=== PATIENT | female | born 1935 | race Caucasian/White ===

== ENCOUNTER → 2017-02-18 | Outpatient (CLI) | payer MEDICARE, BC ==
[~2017-02-18] MED LIST: GOOD SENSE ASP325 M1; PRILOSEC 20MG20 MG PO; QUALITY CHOICE600 M1 PO; XANAX0.25 MG PO
== END ==
LOC: LAB 09:07
DX: N30.01 Acute cystitis with hematuria (principal); R31.9 Hematuria, unspecified

== ENCOUNTER → 2017-03-01 | Outpatient (CLI) | payer MEDICARE, BC | LOC: LAB 16:22 | DX: N30.01 Acute cystitis with hematuria (principal) ==

== ENCOUNTER → 2017-11-20 | Outpatient (CLI) | payer MEDICARE, BC ==
[2014-12-30 11:00] VITALS: BP 122/69
[2017-11-20 14:15] LABS: ALBUMIN 4.2 g/dL (3.5-5.0); BUN/CREATININE RATIO 20.5 (6.0-26.0); CALCIUM 9.6 mg/dL (8.4-10.2); POTASSIUM 4.2 mmol/L (3.6-5.0); TOTAL BILIRUBIN 1.2 mg/dL (0.2-1.3); TOTAL PROTEIN 7.6 g/dL (6.3-8.2)
[2017-11-20 14:24] LABS: EOS # 0.2 (0.04-0.40); EOS % 2.9 % (1.0-5.0); HEMATOCRIT 46.5 % (37.0-47.0); HEMOGLOBIN 15.3 g/dL (12.5-16.0); LYMPH# 3.7 (1.50-4.00); MEAN CELL VOLUME 90 fl (78-100); MEAN CORPUSCULAR HEMOGLOBIN 30 pg (27-31); MEAN CORPUSCULAR HGB CONC 33 g/dL (33-37); MEAN PLATELET VOLUME 8.8 fl (7.4-10.4); MONO # 0.7 (0.20-0.80); PLATELET COUNT 257 K/mm3 (130-400); RED BLOOD COUNT 5.17 M/mm3 (4.10-5.30); RED CELL DISTRIBUTION WIDTH 13.2 % (11.5-14.5); WHITE BLOOD COUNT 7.7 K/mm3 (4.8-10.8)
== END ==
LOC: LAB 13:42
PROVIDERS: Nurse Practitioner Family
DX: R74.8 Abnormal levels of other serum enzymes (principal); D05.10 Intraductal carcinoma in situ of unspecified breast; M80.00XD Age-related osteoporosis with current pathological fracture, unspecified site, subsequent encounter for fracture with routine healing; Z88.5 Allergy status to narcotic agent; Z88.6 Allergy status to analgesic agent; Z88.4 Allergy status to anesthetic agent; Z88.1 Allergy status to other antibiotic agents; Z91.012 Allergy to eggs; Z91.040 Latex allergy status

== ENCOUNTER → 2017-12-17 | Outpatient (CLI) | payer MEDICARE, BC ==
[2014-12-30 11:00] VITALS: BP 122/69
== END ==
LOC: MAMMO 12:58 → RAD 13:00 → MAMMO 13:00
DX: Z12.31 Encounter for screening mammogram for malignant neoplasm of breast (principal); Z85.3 Personal history of malignant neoplasm of breast

== ENCOUNTER 2017-12-27 14:12 | Emergency (ER) | payer MEDICARE, BC ==
[~2017-12-27] VITALS: Ht 160 cm; Wt 72.7 kg
[2017-12-27] MEDS ORDERED: CHILDREN'S ASPI81 M1 PO (14:22)
[2017-12-27 15:41] LABS: EOS # 0.2 (0.04-0.40); EOS % 1.7 % (1.0-5.0); HEMATOCRIT 48.3 % (37.0-47.0); LYMPH# 3.6 (1.50-4.00); MEAN CELL VOLUME 89 fl (78-100); MEAN CORPUSCULAR HEMOGLOBIN 30 pg (27-31); MEAN CORPUSCULAR HGB CONC 33 g/dL (33-37); NEU # 4.7 (1.40-6.50); PLATELET COUNT 231 K/mm3 (130-400); RED BLOOD COUNT 5.42 M/mm3 (4.10-5.30); RED CELL DISTRIBUTION WIDTH 13.2 % (11.5-14.5); WHITE BLOOD COUNT 9.5 K/mm3 (4.8-10.8)
[2017-12-27 15:54] LABS: ALBUMIN 4.4 g/dL (3.5-5.0); BUN/CREATININE RATIO 17.6 (6.0-26.0); CALCIUM 9.9 mg/dL (8.4-10.2); POTASSIUM 4.5 mmol/L (3.6-5.0); TOTAL BILIRUBIN 1.2 mg/dL (0.2-1.3); TOTAL PROTEIN 7.8 g/dL (6.3-8.2)
[2017-12-27 16:00] LABS: CKMB ISOENZYME 1.4 ng/mL (0.6-3.5)
[2017-12-27 16:13] LABS: D-DIMER 0.6 mg/L FEU (0.15-0.50)
[2017-12-27 16:20] LABS: URINE APPEARANCE HAZY; URINE BILIRUBIN NEGATIVE (NEGATIVE); URINE BLOOD TRACE (NEGATIVE); URINE COLOR YELLOW; URINE GLUCOSE NEGATIVE (NEGATIVE); URINE KETONE NEGATIVE (NEGATIVE); URINE LEUKOCYTE ESTERASE 2+ (NEGATIVE); URINE NITRATE NEGATIVE (NEGATIVE); URINE PROTEIN(semi-quant) TRACE mg/dL (NEGATIVE); URINE UROBILINOGEN NORMAL (NORMAL); URINE WBC >50 /hpf (0-3)
[2017-12-27 16:33] LABS: TROPONIN-I < 0.03 ng/mL (0.00-0.06)
[2017-12-27 16:52] VITALS: BP 152/80
== END 2017-12-27 16:49 | disposition home or self-care (01) ==
LOC: ED 14:12
PROVIDERS: Physician Assistant
DX: M94.0 Chondrocostal junction syndrome [Tietze] (principal); Z85.3 Personal history of malignant neoplasm of breast; R82.90 Unspecified abnormal findings in urine; K21.9 Gastro-esophageal reflux disease without esophagitis; Z79.82 Long term (current) use of aspirin; Z88.5 Allergy status to narcotic agent; Z88.8 Allergy status to other drugs, medicaments and biological substances; Z91.012 Allergy to eggs; Z91.040 Latex allergy status

== ENCOUNTER → 2018-04-03 | Outpatient (CLI) | payer MEDICARE, BC ==
[~2018-04-03] MED LIST changes: +CHILDREN'S ASPI81 M1 PO
== END ==
LOC: RAD 08:30
DX: K76.89 Other specified diseases of liver (principal)

== ENCOUNTER → 2019-02-18 | Outpatient (CLI) | payer MEDICARE, BC | LOC: MAMMO 12:27 | DX: Z12.31 Encounter for screening mammogram for malignant neoplasm of breast (principal) ==

== ENCOUNTER → 2019-05-27 | Outpatient (CLI) | payer MEDICARE, BC | LOC: RAD 13:14 | DX: M19.031 Primary osteoarthritis, right wrist (principal) ==

== ENCOUNTER → 2019-10-08 | Outpatient (CLI) | payer MEDICARE, BC ==
[2019-10-08 16:19] LABS: URINE APPEARANCE CLOUDY; URINE BILIRUBIN NEGATIVE (NEGATIVE); URINE BLOOD 250 ery/uL (NEGATIVE); URINE COLOR YELLOW; URINE GLUCOSE NEGATIVE (NEGATIVE); URINE KETONE NEGATIVE (NEGATIVE); URINE LEUKOCYTE ESTERASE 2+ (NEGATIVE); URINE NITRATE POSITIVE (NEGATIVE); URINE PROTEIN(semi-quant) 1+ mg/dL (NEGATIVE); URINE UROBILINOGEN NORMAL (NORMAL); URINE WBC >50 /hpf (0-3)
== END ==
LOC: LAB 15:20
PROVIDERS: Physician Assistant
DX: N39.0 Urinary tract infection, site not specified (principal); R82.71 Bacteriuria

== ENCOUNTER → 2019-12-15 | Outpatient (CLI) | payer MEDICARE, BC ==
[2019-12-15 15:00] LABS: EOS # 0.2 (0.04-0.40); EOS % 1.7 % (1.0-5.0); HEMATOCRIT 47.5 % (37.0-47.0); HEMOGLOBIN 15.2 g/dL (12.5-16.0); LYMPH# 3.5 (1.50-4.00); MEAN CELL VOLUME 91 fl (78-100); MEAN CORPUSCULAR HEMOGLOBIN 29 pg (27-31); MEAN CORPUSCULAR HGB CONC 32 g/dL (33-37); MONO # 0.7 (0.20-0.80); NEU # 4.8 (1.40-6.50); PLATELET COUNT 255 K/mm3 (130-400); RED CELL DISTRIBUTION WIDTH 13.6 % (11.5-14.5); WHITE BLOOD COUNT 9.3 K/mm3 (4.8-10.8)
[2019-12-15 15:08] LABS: ALBUMIN 4.2 g/dL (3.4-4.8)
[2019-12-15 15:09] LABS: POTASSIUM 4.6 mmol/L (3.5-5.1)
[2019-12-15 15:10] LABS: CALCIUM 8.3 mg/dL (8.3-10.5)
[2019-12-15 15:11] LABS: TOTAL PROTEIN 7.1 g/dL (6.2-8.1)
[2019-12-15 15:13] LABS: TOTAL BILIRUBIN 1.2 mg/dL (0.2-1.2)
[2019-12-15 15:19] LABS: PH-URINE 7.5 (5.0 - 8.0); URINE APPEARANCE CLEAR; URINE BILIRUBIN NEGATIVE (NEGATIVE); URINE BLOOD TRACE (NEGATIVE); URINE COLOR YELLOW; URINE GLUCOSE NEGATIVE (NEGATIVE); URINE KETONE NEGATIVE (NEGATIVE); URINE LEUKOCYTE ESTERASE 1+ (NEGATIVE); URINE NITRATE NEGATIVE (NEGATIVE); URINE PROTEIN(semi-quant) NEGATIVE (NEGATIVE); URINE UROBILINOGEN NORMAL (NORMAL)
== END ==
LOC: RAD 14:26
PROVIDERS: Physician Assistant
DX: K76.89 Other specified diseases of liver (principal); Z87.440 Personal history of urinary (tract) infections

== ENCOUNTER → 2019-12-22 | Outpatient (CLI) | payer MEDICARE, BC | LOC: RAD 14:20 | DX: K57.30 Diverticulosis of large intestine without perforation or abscess without bleeding (principal); K76.89 Other specified diseases of liver ==

== ENCOUNTER 2020-03-18 20:31 | Emergency (ER) | payer MEDICARE, BC ==
[2020-03-18] MEDS ORDERED: NATURAL VITAM1000 MG PO (20:45)
[2020-03-18 22:05] VITALS: BP 159/93
== END 2020-03-18 22:05 | disposition home or self-care (01) ==
LOC: ED 20:31
DX: R04.0 Epistaxis (principal)

== ENCOUNTER → 2020-10-04 | Outpatient (CLI) | payer MEDICARE, BC ==
[~2020-10-04] MED LIST changes: +NATURAL VITAM1000 MG PO
== END ==
LOC: MAMMO 13:00
DX: Z00.00 Encounter for general adult medical examination without abnormal findings (principal); Z12.31 Encounter for screening mammogram for malignant neoplasm of breast; Z90.11 Acquired absence of right breast and nipple

== ENCOUNTER → 2021-04-19 | Outpatient (CLI) | payer MEDICARE, BC ==
[~2021-04-19] MED LIST changes: +ACID-PEP20 MG PO; +DEXAMETHASONE OP; +LORAZEPAM0.5 M1 PO; +SERTRALINE50 MG PO; +[UNRECOGNIZED DRUG - OTHER] OP
== END ==
LOC: RAD 09:25
DX: M48.02 Spinal stenosis, cervical region (principal); M46.92 Unspecified inflammatory spondylopathy, cervical region; M43.22 Fusion of spine, cervical region

== ENCOUNTER 2021-07-14 17:10 | Emergency (ER) | payer MEDICARE, BC ==
[~2021-07-14] VITALS: Ht 160 cm; Wt 76.0 kg
[~2021-07-14 17:10] MED LIST changes: -ACID-PEP20 MG PO; -DEXAMETHASONE OP; -LORAZEPAM0.5 M1 PO; -SERTRALINE50 MG PO; -[UNRECOGNIZED DRUG - OTHER] OP
[2021-07-14] MEDS ORDERED: SERTRALINE50 MG PO (17:31)
[2021-07-14] MEDS ORDERED: [UNRECOGNIZED DRUG - OTHER] OP (17:33)
[2021-07-14] MEDS ORDERED: DEXAMETHASONE OP (17:33)
[2021-07-14] MEDS ORDERED: ACID-PEP20 MG PO (17:34)
[2021-07-14 18:06] LABS: BASO # 0.03 (0.02-0.10); EOS # 0.21 (0.04-0.40); EOS % 2.7 % (1.0-5.0); HEMATOCRIT 42.9 % (37.0-47.0); HEMOGLOBIN 14.1 g/dL (12.5-16.0); LYMPH# 2.78 (1.50-4.00); MEAN CELL VOLUME 92 fl (78-100); MEAN CORPUSCULAR HEMOGLOBIN 30 pg (27-31); MEAN CORPUSCULAR HGB CONC 33 g/dL (33-37); MEAN PLATELET VOLUME 8.7 fl (7.4-10.4); MONO # 0.72 (0.20-0.80); NEU # 3.93 (1.40-6.50); PLATELET COUNT 203 K/mm3 (130-400); RED BLOOD COUNT 4.68 M/mm3 (4.10-5.30); RED CELL DISTRIBUTION WIDTH 12.7 % (11.5-14.5); WHITE BLOOD COUNT 7.7 K/mm3 (4.8-10.8)
[2021-07-14 18:31] LABS: ALBUMIN 3.7 g/dL (3.4-4.8)
[2021-07-14 18:32] LABS: CALCIUM 9.6 mg/dL (8.3-10.5); TROPONIN-I < 0.03 ng/mL (<0.030)
[2021-07-14 18:33] LABS: GLUCOSE 107 mg/dL (65-105); TOTAL PROTEIN 6.7 g/dL (6.2-8.1)
[2021-07-14 18:34] LABS: CARBON DIOXIDE 25 mmol/L (23-31)
[2021-07-14 18:35] LABS: TOTAL BILIRUBIN 1.2 mg/dL (0.2-1.2)
[2021-07-14 18:39] LABS: AST-SGOT 29 U/L (5-34)
[2021-07-14 18:40] LABS: ALT/SGPT 27 U/L (0-55)
[2021-07-14] MEDS ORDERED: LORAZEPAM0.5 M1 PO (19:20)
[2021-07-14 19:40] VITALS: BP 140/71
[2021-07-14 20:27] LABS: POTASSIUM 4.5 mmol/L (3.5-5.1); SODIUM 136 mmol/L (136-145)
== END 2021-07-14 19:40 | disposition home or self-care (01) ==
LOC: ED 17:10
PROVIDERS: Family Medicine
DX: F41.9 Anxiety disorder, unspecified (principal); M94.0 Chondrocostal junction syndrome [Tietze]; K21.9 Gastro-esophageal reflux disease without esophagitis; Z79.899 Other long term (current) drug therapy

== ENCOUNTER → 2021-10-20 | Outpatient (CLI) | payer MEDICARE, BC ==
[~2021-10-20] MED LIST changes: +ACID-PEP20 MG PO; +DEXAMETHASONE OP; +LORAZEPAM0.5 M1 PO; +SERTRALINE50 MG PO; +[UNRECOGNIZED DRUG - OTHER] OP
[2021-10-20 15:27] LABS: BASO # 0.03 K/mm3 (0.02-0.10); EOS # 0.29 K/mm3 (0.04-0.40); EOS % 4.1 % (1.0-5.0); HEMATOCRIT 45.3 % (37.0-47.0); HEMOGLOBIN 14.5 g/dL (12.5-16.0); LYMPH# 3.18 K/mm3 (1.50-4.00); MEAN CELL VOLUME 94 fl (78-100); MEAN CORPUSCULAR HEMOGLOBIN 30 pg (27-31); MEAN CORPUSCULAR HGB CONC 32 g/dL (33-37); MEAN PLATELET VOLUME 9.2 fl (7.4-10.4); MONO # 0.68 K/mm3 (0.20-0.80); PLATELET COUNT 184 K/mm3 (130-400); RED BLOOD COUNT 4.82 M/mm3 (4.10-5.30); RED CELL DISTRIBUTION WIDTH 12.8 % (11.5-14.5); WHITE BLOOD COUNT 7.1 K/mm3 (4.8-10.8)
[2021-10-20 16:09] LABS: POTASSIUM 4.3 mmol/L (3.5-5.1)
[2021-10-20 16:10] LABS: CALCIUM 9.3 mg/dL (8.3-10.5)
[2021-10-20 16:11] LABS: TOTAL PROTEIN 6.6 g/dL (6.2-8.1)
[2021-10-20 16:13] LABS: TOTAL BILIRUBIN 0.9 mg/dL (0.2-1.2)
== END ==
LOC: LAB 14:58
PROVIDERS: Physician Assistant
DX: M81.0 Age-related osteoporosis without current pathological fracture (principal); R53.83 Other fatigue; E78.5 Hyperlipidemia, unspecified; R94.5 Abnormal results of liver function studies

== ENCOUNTER → 2022-03-12 | Outpatient (CLI) | payer MEDICARE, BC | LOC: MAMMO 14:07 | DX: Z12.31 Encounter for screening mammogram for malignant neoplasm of breast (principal) ==

== ENCOUNTER 2022-12-15 11:39 | Emergency (ER) | payer MEDICARE, BC ==
[~2022-12-15] VITALS: Ht 157.5 cm; Wt 73.4 kg
[~2022-12-15 11:39] MED LIST changes: -CLOPIDOGREL PO
[2022-12-15 13:10] LABS: BASO # 0.02 K/mm3 (0.02-0.10); EOS # 0.21 K/mm3 (0.04-0.40); EOS % 2.2 % (1.0-5.0); HEMATOCRIT 40.4 % (37.0-47.0); HEMOGLOBIN 12.5 g/dL (12.5-16.0); LYMPH# 3.25 K/mm3 (1.50-4.00); MEAN CELL VOLUME 83 fl (78-100); MEAN CORPUSCULAR HEMOGLOBIN 26 pg (27-31); MEAN CORPUSCULAR HGB CONC 31 g/dL (33-37); MEAN PLATELET VOLUME 9.6 fl (7.4-10.4); MONO # 0.78 K/mm3 (0.20-0.80); NEU # 5.45 K/mm3 (1.40-6.50); RED BLOOD COUNT 4.89 M/mm3 (4.10-5.30); RED CELL DISTRIBUTION WIDTH 13.7 % (11.5-14.5); WHITE BLOOD COUNT 9.8 K/mm3 (4.8-10.8)
[2022-12-15 13:11] LABS: PLATELET COUNT 150 K/mm3 (130-400)
[2022-12-15 13:14] LABS: POTASSIUM 4.5 mmol/L (3.5-5.1)
[2022-12-15 13:15] LABS: ALBUMIN 4.2 g/dL (3.4-4.8); SODIUM 136 mmol/L (136-145)
[2022-12-15 13:18] LABS: GLUCOSE 94 mg/dL (65-105); TOTAL PROTEIN 7.4 g/dL (6.2-8.1)
[2022-12-15 13:19] LABS: CARBON DIOXIDE 23 mmol/L (23-31); TOTAL BILIRUBIN 1.2 mg/dL (0.2-1.2)
[2022-12-15 13:23] LABS: AST-SGOT 29 U/L (5-34)
[2022-12-15 13:25] LABS: ALT/SGPT 23 U/L (0-55)
[2022-12-15 13:34] LABS: TROPONIN-I < 0.030 ng/mL (<0.030)
[2022-12-15 14:32] LABS: PH-URINE 5.5 (5.0 - 8.0); URINE APPEARANCE CLEAR; URINE BILIRUBIN NEGATIVE (NEGATIVE); URINE BLOOD NEGATIVE (NEGATIVE); URINE COLOR YELLOW; URINE GLUCOSE NEGATIVE (NEGATIVE); URINE KETONE NEGATIVE (NEGATIVE); URINE LEUKOCYTE ESTERASE 1+ (NEGATIVE); URINE NITRATE NEGATIVE (NEGATIVE); URINE PROTEIN(semi-quant) NEGATIVE (NEGATIVE); URINE UROBILINOGEN NORMAL (NORMAL)
[2022-12-15] MEDS ORDERED: CLOPIDOGREL PO (15:05)
[2022-12-15 15:42] VITALS: BP 126/94
== END 2022-12-15 15:56 | disposition home or self-care (01) ==
LOC: ED 11:39
PROVIDERS: Family Medicine
DX: I69.354 Hemiplegia and hemiparesis following cerebral infarction affecting left non-dominant side (principal); Z79.02 Long term (current) use of antithrombotics/antiplatelets; Z79.82 Long term (current) use of aspirin

== ENCOUNTER → 2022-12-15 | Outpatient (CLI) | payer MEDICARE, BC ==
[~2022-12-15] MED LIST changes: +CLOPIDOGREL PO
== END ==
LOC: AMSURD 15:59
DX: I63.9 Cerebral infarction, unspecified (principal); G81.94 Hemiplegia, unspecified affecting left nondominant side

== ENCOUNTER → 2022-12-17 | Outpatient (CLI) | payer MEDICARE, BC ==
[~2022-12-17] MED LIST changes: +CLOPIDOGREL PO
== END ==
LOC: VAS 13:09
DX: I63.9 Cerebral infarction, unspecified (principal); G81.94 Hemiplegia, unspecified affecting left nondominant side

== ENCOUNTER → 2022-12-18 | Outpatient (CLI) | payer MEDICARE, BC ==
[2022-12-18 15:29] LABS: BASO # 0.03 K/mm3 (0.02-0.10); EOS # 0.18 K/mm3 (0.04-0.40); EOS % 2.2 % (1.0-5.0); HEMATOCRIT 39.8 % (37.0-47.0); HEMOGLOBIN 12.3 g/dL (12.5-16.0); LYMPH# 3.04 K/mm3 (1.50-4.00); MEAN CELL VOLUME 83 fl (78-100); MEAN CORPUSCULAR HEMOGLOBIN 26 pg (27-31); MEAN CORPUSCULAR HGB CONC 31 g/dL (33-37); MEAN PLATELET VOLUME 8.7 fl (7.4-10.4); MONO # 0.78 K/mm3 (0.20-0.80); NEU # 4.18 K/mm3 (1.40-6.50); PLATELET COUNT 276 K/mm3 (130-400); RED BLOOD COUNT 4.77 M/mm3 (4.10-5.30); RED CELL DISTRIBUTION WIDTH 13.8 % (11.5-14.5); WHITE BLOOD COUNT 8.2 K/mm3 (4.8-10.8)
[2022-12-18 15:43] LABS: ALBUMIN 4.1 g/dL (3.4-4.8); POTASSIUM 4.1 mmol/L (3.5-5.1)
[2022-12-18 15:44] LABS: CALCIUM 10.1 mg/dL (8.3-10.5)
[2022-12-18 15:45] LABS: TOTAL PROTEIN 7.4 g/dL (6.2-8.1)
[2022-12-18 15:47] LABS: TOTAL BILIRUBIN 0.8 mg/dL (0.2-1.2)
== END ==
LOC: LAB 14:53
PROVIDERS: Physician Assistant
DX: Z00.00 Encounter for general adult medical examination without abnormal findings (principal); I63.9 Cerebral infarction, unspecified; E78.5 Hyperlipidemia, unspecified; K90.9 Intestinal malabsorption, unspecified; G81.90 Hemiplegia, unspecified affecting unspecified side; Z13.29 Encounter for screening for other suspected endocrine disorder; Z13.1 Encounter for screening for diabetes mellitus

== ENCOUNTER → 2023-03-14 | Outpatient (CLI) | payer MEDICARE, BC ==
[2023-03-14 11:27] LABS: BASO # 0.03 K/mm3 (0.02-0.10); EOS # 0.06 K/mm3 (0.04-0.40); EOS % 0.6 % (1.0-5.0); HEMATOCRIT 29.7 % (37.0-47.0); HEMOGLOBIN 8.5 g/dL (12.5-16.0); LYMPH# 3.02 K/mm3 (1.50-4.00); MEAN CELL VOLUME 74 fl (78-100); MEAN CORPUSCULAR HEMOGLOBIN 21 pg (27-31); MEAN CORPUSCULAR HGB CONC 29 g/dL (33-37); MEAN PLATELET VOLUME 8.4 fl (7.4-10.4); MONO # 0.79 K/mm3 (0.20-0.80); NEU # 5.96 K/mm3 (1.40-6.50); PLATELET COUNT 256 K/mm3 (130-400); RED BLOOD COUNT 3.99 M/mm3 (4.10-5.30); RED CELL DISTRIBUTION WIDTH 14.8 % (11.5-14.5); WHITE BLOOD COUNT 9.9 K/mm3 (4.8-10.8)
[2023-03-14 11:33] LABS: ALBUMIN 4.2 g/dL (3.4-4.8); POTASSIUM 4.4 mmol/L (3.5-5.1)
[2023-03-14 11:34] LABS: CALCIUM 9.8 mg/dL (8.3-10.5)
[2023-03-14 11:35] LABS: TOTAL PROTEIN 7.3 g/dL (6.2-8.1)
[2023-03-14 11:48] LABS: PROTHROMBIN TIME 9.5 SECONDS (9.0-12.0); TROPONIN-I 0.38 ng/mL (<0.030)
== END ==
LOC: LAB 11:05
PROVIDERS: Physician Assistant
DX: Z01.20 Encounter for dental examination and cleaning without abnormal findings (principal); I63.9 Cerebral infarction, unspecified; R07.9 Chest pain, unspecified; R06.09 Other forms of dyspnea

== ENCOUNTER → 2023-12-12 | Outpatient (CLI) | payer MEDICARE, BC | LOC: RAD 14:48 | DX: R10.84 Generalized abdominal pain (principal); R06.09 Other forms of dyspnea ==

== ENCOUNTER → 2023-12-13 | Outpatient (CLI) | payer MEDICARE, BC ==
[2023-12-13 11:50] LABS: BASO # 0.05 K/mm3 (0.02-0.10); EOS # 0.21 K/mm3 (0.04-0.40); EOS % 2.8 % (1.0-5.0); HEMATOCRIT 32.5 % (37.0-47.0); HEMOGLOBIN 9.4 g/dL (12.5-16.0); MEAN CELL VOLUME 78 fl (78-100); MEAN CORPUSCULAR HEMOGLOBIN 23 pg (27-31); MEAN CORPUSCULAR HGB CONC 29 g/dL (33-37); MEAN PLATELET VOLUME 8.9 fl (7.4-10.4); MONO # 0.77 K/mm3 (0.20-0.80); NEU # 3.36 K/mm3 (1.40-6.50); PLATELET COUNT 253 K/mm3 (130-400); RED BLOOD COUNT 4.18 M/mm3 (4.10-5.30); RED CELL DISTRIBUTION WIDTH 15.9 % (11.5-14.5); WHITE BLOOD COUNT 7.5 K/mm3 (4.8-10.8)
[2023-12-13 11:55] LABS: ALBUMIN 4.1 g/dL (3.4-4.8); SODIUM 138 mmol/L (136-145)
[2023-12-13 11:57] LABS: CALCIUM 9.6 mg/dL (8.3-10.5)
[2023-12-13 11:58] LABS: GLUCOSE 98 mg/dL (65-105); TOTAL PROTEIN 6.8 g/dL (6.2-8.1)
[2023-12-13 11:59] LABS: CARBON DIOXIDE 27 mmol/L (23-31)
[2023-12-13 12:00] LABS: TOTAL BILIRUBIN 1.1 mg/dL (0.2-1.2)
[2023-12-13 12:03] LABS: AST-SGOT 28 U/L (5-34)
[2023-12-13 12:04] LABS: ALT/SGPT 23 U/L (0-55)
[2023-12-13 12:05] LABS: LIPASE 26 U/L (8-78)
[2023-12-13 12:12] LABS: TROPONIN-I < 0.030 ng/mL (0.00-0.033)
== END ==
LOC: LAB 11:32
PROVIDERS: Physician Assistant
DX: R06.09 Other forms of dyspnea (principal); R53.83 Other fatigue; R10.84 Generalized abdominal pain

== ENCOUNTER → 2024-01-02 | Outpatient (CLI) | payer MEDICARE, BC ==
[2024-01-02 09:12] LABS: CALCIUM 9.4 mg/dL (8.3-10.5)
[2024-01-02 09:13] LABS: TOTAL PROTEIN 6.5 g/dL (6.2-8.1)
[2024-01-02 09:15] LABS: TOTAL BILIRUBIN 0.8 mg/dL (0.2-1.2)
== END ==
LOC: RAD 08:17
PROVIDERS: Nurse Practitioner Family
DX: E04.1 Nontoxic single thyroid nodule (principal); M47.812 Spondylosis without myelopathy or radiculopathy, cervical region; K76.9 Liver disease, unspecified; D64.9 Anemia, unspecified

== ENCOUNTER → 2024-02-13 | Outpatient (CLI) | payer MEDICARE, BC ==
[2024-02-13 11:35] LABS: URINE APPEARANCE SLIGHTLY CLOUDY (CLEAR); URINE BILIRUBIN NEGATIVE (NEGATIVE); URINE COLOR YELLOW (YELLOW); URINE GLUCOSE NEGATIVE (NEGATIVE); URINE KETONE NEGATIVE (NEGATIVE); URINE PROTEIN(semi-quant) NEGATIVE (NEGATIVE)
[2024-02-13 11:36] LABS: URINE BLOOD 1+ (NEGATIVE); URINE LEUKOCYTE ESTERASE 1+ (NEGATIVE); URINE NITRATE NEGATIVE (NEGATIVE)
== END ==
LOC: LAB 10:09
PROVIDERS: Physician Assistant
DX: N39.0 Urinary tract infection, site not specified (principal)

== ENCOUNTER → 2024-04-13 | Outpatient (CLI) | payer MEDICARE, BC ==
[2024-06-02 13:56] LABS: BASO # 0.01 K/mm3 (0.02-0.10); EOS # 0.06 K/mm3 (0.04-0.40); EOS % 1.3 % (1.0-5.0); HEMATOCRIT 44.1 % (37.0-47.0); HEMOGLOBIN 14.3 g/dL (12.5-16.0); LYMPH# 2.68 K/mm3 (1.50-4.00); MEAN CELL VOLUME 88 fl (78-100); MEAN CORPUSCULAR HEMOGLOBIN 28 pg (27-31); MEAN CORPUSCULAR HGB CONC 32 g/dL (33-37); MEAN PLATELET VOLUME 9.5 fl (7.4-10.4); MONO # 0.36 K/mm3 (0.20-0.80); NEU # 1.67 K/mm3 (1.40-6.50); PLATELET COUNT 127 K/mm3 (130-400); RED BLOOD COUNT 5.04 M/mm3 (4.10-5.30); RED CELL DISTRIBUTION WIDTH 15.1 % (11.5-14.5); WHITE BLOOD COUNT 4.8 K/mm3 (4.8-10.8)
[2024-06-02 14:00] LABS: ALBUMIN 3.8 g/dL (3.4-4.8); TOTAL BILIRUBIN 0.8 mg/dL (0.2-1.2); TOTAL PROTEIN 6.2 g/dL (6.2-8.1)
== END ==
LOC: LAB 12:00
PROVIDERS: Physician Assistant
DX: R53.83 Other fatigue (principal); R19.7 Diarrhea, unspecified

== ENCOUNTER 2024-04-14 15:28 | Emergency (ER) | payer MEDICARE, BC ==
[~2024-04-14 15:28] MED LIST changes: +D5LR 1,000 ML IV ONE; +cefTRIAXone 1 G in Water For Injection,Sterile 10 ML IV ONE
[2024-05-19 05:11] LABS: BASO # 0.01 K/mm3 (0.02-0.10); EOS # 0.09 K/mm3 (0.04-0.40); EOS % 2.3 % (1.0-5.0); HEMATOCRIT 39.7 % (37.0-47.0); LYMPH# 1.71 K/mm3 (1.50-4.00); MEAN CELL VOLUME 87 fl (78-100); MEAN CORPUSCULAR HEMOGLOBIN 28 pg (27-31); MEAN CORPUSCULAR HGB CONC 33 g/dL (33-37); MEAN PLATELET VOLUME 9.7 fl (7.4-10.4); MONO # 0.45 K/mm3 (0.20-0.80); NEU # 1.69 K/mm3 (1.40-6.50); PLATELET COUNT 134 K/mm3 (130-400); RED BLOOD COUNT 4.59 M/mm3 (4.10-5.30)
[2024-05-19 05:13] LABS: ALBUMIN 3.4 g/dL (3.4-4.8); CALCIUM 8.7 mg/dL (8.3-10.5); TOTAL BILIRUBIN 1.4 mg/dL (0.2-1.2); TOTAL PROTEIN 5.6 g/dL (6.2-8.1)
[2024-05-19 05:14] LABS: URINE APPEARANCE CLOUDY (CLEAR); URINE BILIRUBIN 1+ (NEGATIVE); URINE COLOR AMBER (YELLOW); URINE GLUCOSE NEGATIVE (NEGATIVE); URINE KETONE NEGATIVE (NEGATIVE); URINE PROTEIN(semi-quant) NEGATIVE (NEGATIVE)
[2024-05-19 05:15] LABS: URINE BLOOD TRACE (NEGATIVE); URINE LEUKOCYTE ESTERASE 1+ (NEGATIVE); URINE NITRATE POSITIVE (NEGATIVE); URINE WBC 31-50 /hpf (0-3)
[2024-05-19 05:16] LABS: URINE MUCUS PRESENT (NOT PRESENT)
== END 2024-04-14 23:20 | disposition home or self-care (01) ==
LOC: ED 15:28
PROVIDERS: Nurse Practitioner Family
DX: E86.0 Dehydration (principal); F32.A Depression, unspecified; R19.7 Diarrhea, unspecified
CPT/HCPCS: J0696; J7120; J7121

== ENCOUNTER → 2024-05-07 | Outpatient (CLI) | payer MEDICARE, BC ==
[~2024-05-07] MED LIST changes: -D5LR 1,000 ML IV ONE; -cefTRIAXone 1 G in Water For Injection,Sterile 10 ML IV ONE
[2024-05-07 15:12] LABS: BASO # 0.02 K/mm3 (0.02-0.10); EOS # 0.33 K/mm3 (0.04-0.40); EOS % 4.2 % (1.0-5.0); HEMATOCRIT 41.7 % (37.0-47.0); HEMOGLOBIN 13.6 g/dL (12.5-16.0); LYMPH# 2.74 K/mm3 (1.50-4.00); MEAN CELL VOLUME 90 fl (78-100); MEAN CORPUSCULAR HEMOGLOBIN 29 pg (27-31); MEAN CORPUSCULAR HGB CONC 33 g/dL (33-37); MONO # 0.77 K/mm3 (0.20-0.80); NEU # 3.89 K/mm3 (1.40-6.50); PLATELET COUNT 241 K/mm3 (130-400); RED BLOOD COUNT 4.63 M/mm3 (4.10-5.30); RED CELL DISTRIBUTION WIDTH 14.6 % (11.5-14.5); WHITE BLOOD COUNT 7.8 K/mm3 (4.8-10.8)
[2024-05-07 15:20] LABS: ALBUMIN 3.8 g/dL (3.4-4.8)
[2024-05-07 15:21] LABS: CALCIUM 9.7 mg/dL (8.3-10.5)
[2024-05-07 15:23] LABS: TOTAL PROTEIN 6.6 g/dL (6.2-8.1)
[2024-05-07 15:24] LABS: TOTAL BILIRUBIN 0.9 mg/dL (0.2-1.2)
== END ==
LOC: LAB 14:56
PROVIDERS: Physician Assistant
DX: D64.9 Anemia, unspecified (principal); E87.6 Hypokalemia